=== PATIENT | female | born 1995 | race Caucasian/White ===

== ENCOUNTER 2017-01-25 12:10 | Observation (INO) | payer OTHER ==
[~2017-01-25] VITALS: Ht 160 cm; Wt 64.9 kg
[~2017-01-25 12:10] MED LIST: PREN-385 PO
[2017-01-25 13:15] VITALS: BP 98/55
== END 2017-01-25 13:28 | disposition home or self-care (01) ==
LOC: MLD 12:10
PROVIDERS: ADMIT Obstetrics & Gynecology; ATTEND Obstetrics & Gynecology
DX: O26.893 Other specified pregnancy related conditions, third trimester (principal); R10.13 Epigastric pain; R07.81 Pleurodynia; Z3A.35 35 weeks gestation of pregnancy
CPT/HCPCS: 81000; G0378

== ENCOUNTER 2017-03-02 11:52 | Inpatient (IN) | payer OTHER ==
[~2017-03-02] VITALS: Ht 160 cm; Wt 62.6 kg
[2017-03-02] MEDS ORDERED: LACTATED RINGERS 1,000 ML IV SCH (15:21)
[2017-03-02] MEDS ORDERED: METOCLOPRAMIDE 10 MG/2 ML INJ VIAL IVP ONE (15:25)
[2017-03-02] MEDS ORDERED: CITRIC ACID/SODIUM CITRATE 30 ML UDC PO ONE (15:25)
[2017-03-02 15:54] VITALS: BP 102/63
[2017-03-02 15:58] LABS: BASOPHILS # (AUTO) 0.1 K/uL (0.00-0.22); BASOPHILS % (AUTO) 1.5 % (0.0-2.0); EOSINOPHILS # (AUTO) 0.1 K/uL (0-0.4); HEMATOCRIT 36.8 % (36-48); HEMOGLOBIN 12.1 g/dL (12.0-16.0); LYMPHOCYTES # (AUTO) 1.4 K/uL (2.5-16.5); LYMPHOCYTES % (AUTO) 17.4 % (20.5-51.1); MEAN CORPUSCULAR HEMOGLOBIN 28 pg (27-31); MEAN CORPUSCULAR HGB CONC 33 g/dL (33-37); MEAN CORPUSCULAR VOLUME 86 fL (80-94); MONOCYTES # (AUTO) 0.4 K/uL (0.8-1.0); MONOCYTES % (AUTO) 5.3 % (1.7-9.3); NEUTROPHILS # (AUTO) 5.9 K/uL (1.8-7.7); NEUTROPHILS % (AUTO) 74.8 % (42.2-75.2); PLATELET COUNT (AUTO) 204 K/uL (140-450); RED CELL DISTRIBUTION WIDTH 13.8 % (11.6-13.7); WHITE BLOOD COUNT (AUTO) 7.9 K/uL (4.8-10.8)
[2017-03-02] MEDS ORDERED: OXYTOCIN 10 UNITS/ML VIAL ONE (16:13)
[2017-03-02 16:17] LABS: PROTHROMBIN TIME 9.3 secs (10.8-13.4)
[2017-03-02 16:17] LABS: APPEARANCE,URINE CLEAR (CLEAR); BILIRUBIN,URINE NEGATIVE (NEGATIVE); BLOOD, URINE TRACE-I (NEGATIVE); COLOR,URINE YELLOW (YELLOW); LEUKOCYTE ESTERASE ,URINE NEGATIVE (NEGATIVE); NITRITE, URINE NEGATIVE (NEGATIVE); UGLUCOSE NEGATIVE (NEGATIVE)
[2017-03-02 16:19] LABS: ALBUMIN 2.3 g/dL (3.4-5.0); ANION GAP 9.2 (8-16); CARBON DIOXIDE 26.1 mmol/L (21-32); CREATININE 0.6 mg/dL (0.6-1.3); POTASSIUM 4.3 mmol/L (3.5-5.1); TOTAL BILIRUBIN 0.2 mg/dL (0.0-1.0)
[2017-03-02 16:19] LABS: BARBITURATE, URINE NEG. ng/ml (NEG <=200); BENZODIAZEPINE, URINE NEG. ng/mL (NEG <=200); CANNABINOID, URINE NEG. ng/mL (NEG <=50); COCAINE, URINE NEG. ng/mL (NEG <=300); OPIATE, URINE NEG. ng/mL (NEG <=2000); PHENCYCLIDINE SCREEN,URINE NEG. ng/mL (NEG <=25)
[2017-03-02 16:26] LABS: RBC,URINE 0-5 (RARE) /HPF (0-5); WBC,URINE 0-5 (RARE) /HPF (0-5)
[2017-03-02] MEDS ORDERED: CARBOPROST 250 MCG/ML AMP IM ONE (16:31)
[2017-03-02] MEDS ORDERED: MIDAZOLAM 2 MG/2 ML VIAL ONE (16:31)
[2017-03-02] MEDS ORDERED: THROMBIN KIT 20 MU VIAL TP ONE (16:31)
[2017-03-02] MEDS ORDERED: MORPHINE PRES FREE 10 MG/10 ML AMP IV ONE (16:32)
[2017-03-02] MEDS ORDERED: ceFAZolin 1,000 MG VIAL IVP ONE (17:00)
[2017-03-02] MEDS ORDERED: NALOXONE 0.4 MG/ML VIAL IVP PRN ×3 (17:30)
[2017-03-02] MEDS ORDERED: MEPERIDINE 25 MG/ML SYR IVP PRN (17:30)
[2017-03-02] MEDS ORDERED: OXYTOCIN 20 UNITS in LACTATED RINGERS 1,000 ML IV SCH (17:30)
[2017-03-02] MEDS ORDERED: ONDANSETRON 4 MG/2 ML VIAL IVP PRN ×2 (17:30)
[2017-03-02] MEDS ORDERED: diphenhydrAMINE 50 MG/ML VIAL IVP PRN ×2 (17:30)
[2017-03-02] MEDS ORDERED: NALBUPHINE 10 MG/ML AMP IVP PRN (17:30)
[2017-03-02] MEDS ORDERED: HYDROmorphone 1 MG/ML AMP IVP PRN (17:30)
[2017-03-02] MEDS ORDERED: diphenhydrAMINE 50 MG/ML VIAL ONE (17:56)
[2017-03-02] MEDS ORDERED: OXYTOCIN 20 UNITS/LR PREMIX 1,000 ML IV ONE ×2 (17:56→22:35)
[2017-03-02] MEDS ORDERED: ONDANSETRON 4 MG/2 ML VIAL ONE (18:47)
[2017-03-02] MEDS ORDERED: TRIMETHOBENZAMIDE 200 MG/2 ML SYR IM PRN (21:40)
[2017-03-02] MEDS ORDERED: MEASLES, MUMPS, AND RUBELLA 1 VIAL SQVAC PRN (21:40)
[2017-03-02] MEDS ORDERED: SIMETHICONE 80 MG TAB.CHEW PO PRN (21:40)
[2017-03-02] MEDS ORDERED: TEMAZEPAM 15 MG CAP PO PRN (21:40)
[2017-03-02] MEDS ORDERED: METHYLERGONOVINE 0.2 MG/ML AMP IM PRN (21:40)
[2017-03-02] MEDS: OXYTOCIN 20 UNITS in LACTATED RINGERS 1,000 ML IV SCH (22:36)
[2017-03-03] MEDS: KETOROLAC 30 MG/ML VIAL IM/IVP SCH ×2 (00:21→06:38)
[2017-03-03 05:20] LABS: BASOPHILS # (AUTO) 0.1 K/uL (0.00-0.22); BASOPHILS % (AUTO) 0.5 % (0.0-2.0); EOSINOPHILS # (AUTO) 0.1 K/uL (0-0.4); HEMATOCRIT 31.7 % (36-48); HEMOGLOBIN 10.2 g/dL (12.0-16.0); LYMPHOCYTES # (AUTO) 1.6 K/uL (2.5-16.5); MEAN CORPUSCULAR HEMOGLOBIN 27 pg (27-31); MEAN CORPUSCULAR HGB CONC 32 g/dL (33-37); MEAN CORPUSCULAR VOLUME 85 fL (80-94); MONOCYTES # (AUTO) 0.5 K/uL (0.8-1.0); MONOCYTES % (AUTO) 4.6 % (1.7-9.3); NEUTROPHILS # (AUTO) 9.2 K/uL (1.8-7.7); NEUTROPHILS % (AUTO) 79.9 % (42.2-75.2); PLATELET COUNT (AUTO) 148 K/uL (140-450); RED BLOOD CELL COUNT(AUTO) 3.73 MIL/uL (4.20-5.40); RED CELL DISTRIBUTION WIDTH 14.2 % (11.6-13.7); WHITE BLOOD COUNT (AUTO) 11.6 K/uL (4.8-10.8)
[2017-03-03] MEDS ORDERED: OXYTOCIN 20 UNITS/LR PREMIX 1,000 ML IV ONE ×2 (06:35→14:32)
[2017-03-03] MEDS: OXYTOCIN 20 UNITS in LACTATED RINGERS 1,000 ML IV SCH ×2 (06:39→14:32)
[2017-03-03] MEDS: HYDROcodone/APAP 5/325 MG 1 TAB TAB PO PRN ×2 (13:27→19:13)
[2017-03-03] MEDS: DOCUSATE SOD/SENNA 50/8.6 MG 1 TAB PO SCH (21:41)
[2017-03-04] MEDS: oxyCODONE/APAP 5/325 MG 1 TAB TAB PO PRN ×2 (00:41→08:36)
[2017-03-04] MEDS: IBUPROFEN 800 MG TAB PO PRN ×2 (02:04→09:54)
[2017-03-04] MEDS ORDERED: BISACODYL 5 MG TABEC PO PRN (12:55)
[2017-03-04] MEDS: HYDROcodone/APAP 5/325 MG 1 TAB TAB PO PRN (19:06)
[2017-03-04] MEDS: DOCUSATE SOD/SENNA 50/8.6 MG 1 TAB PO SCH (20:28)
[2017-03-05] MEDS: HYDROcodone/APAP 5/325 MG 1 TAB TAB PO PRN ×3 (07:47→17:34)
[2017-03-05] MEDS: DOCUSATE SOD/SENNA 50/8.6 MG 1 TAB PO SCH (20:21)
[2017-03-06] VITALS (7 sets, daily range): BP systolic 126–160; BP diastolic 55–96
[2017-03-06] MEDS: HYDROcodone/APAP 5/325 MG 1 TAB TAB PO PRN (01:51)
--- NOTE | 2017-03-06 03:00 | NUR ---
RECEIVED PT FROM LOCATED WITHIN [facility] C/O CHEST PAIN. PER REPORT NORCO GIVEN ORDERED. PT AWAKE ALERT AND ORIENTED X4.ABLE TO AMBULATE TOWARD THE BED WITH ASSIST.ON 02NC AT 2LPM.NO SOB NOTED.SB ON MONITOR NOTED.PT DENIES N/V. PER REPORT, PT VOIDED PRIOR TO TRANSFER TO THE UNIT.W/ DRY AND INTACT LONNIE TO SURGICAL INCISION.PT S/P CESARIAN SECTION (03/02/17) WITH ABDOMINAL BINDER ON.NO BLEEDING NOTED ON SITE.PT STILL C/O CHEST PAIN 02/28; DR WOODS AT BEDSIDE.AWARE.NO NEW ORDERS. PTS ALSO AT BEDSIDE.SPOKE W/
--- NOTE | 2017-03-06 03:25 | NUR ---
PERIPHERAL IV INSERTED TO RT WRIST G 20.SALINE LOCK.ALSO BLOOD DRAWN FOR TROPONIN.AWAITING RESULT.
[2017-03-06 03:37] LABS: BASOPHILS # (AUTO) 0.1 K/uL (0.00-0.22); BASOPHILS % (AUTO) 0.5 % (0.0-2.0); EOSINOPHILS # (AUTO) 0.2 K/uL (0-0.4); EOSINOPHILS % (AUTO) 1.6 % (0.0-4.0); HEMATOCRIT 29.9 % (36-48); HEMOGLOBIN 9.8 g/dL (12.0-16.0); LYMPHOCYTES # (AUTO) 1.1 K/uL (2.5-16.5); LYMPHOCYTES % (AUTO) 10.6 % (20.5-51.1); MEAN CORPUSCULAR HEMOGLOBIN 28 pg (27-31); MEAN CORPUSCULAR HGB CONC 33 g/dL (33-37); MEAN CORPUSCULAR VOLUME 85 fL (80-94); MONOCYTES # (AUTO) 0.6 K/uL (0.8-1.0); MONOCYTES % (AUTO) 5.3 % (1.7-9.3); NEUTROPHILS # (AUTO) 8.8 K/uL (1.8-7.7); PLATELET COUNT (AUTO) 245 K/uL (140-450); RED BLOOD CELL COUNT(AUTO) 3.52 MIL/uL (4.20-5.40); RED CELL DISTRIBUTION WIDTH 14.3 % (11.6-13.7); WHITE BLOOD COUNT (AUTO) 10.8 K/uL (4.8-10.8)
[2017-03-06 03:52] LABS: CARBON DIOXIDE 25.7 mmol/L (21-32); POTASSIUM 3.7 mmol/L (3.5-5.1)
--- NOTE | 2017-03-06 04:47 | NUR ---
PT ASLEEP;STILL SINUS BRADYCARDIA NOTED ON MONITOR. 40'S.PT ASLEEP;NO SIGNS OF PAIN NOTED.WILL CONTNIUE TO CLOSELY MONITOR PT.NO SOB NOTED RESP 19
--- NOTE | 2017-03-06 06:13 | NUR ---
PT ASLEEP; EASILY AROUSABLE.PHOTO OF SURGICAL INCISION TO ABDOMEN TAKEN.PLACED IN CHART.SURGICAL SITE DRY WITH INTACT LONNIE NOTED.SCANTY VAGINAL BLEEDING ALSO NOTED ON PAD.NO C/O PAIN MADE AT THIS TIME. PHONE CALL MADE TO [facility] RN. PER MAGALY, PT GOES TO TOILET TO VOID.BM ALSO NOTED ON THEIR SHIFT.PT VERBALIZED SHE DOES NOT HAVE THE URGE TO URINATE.BLADDER NOT DISTENDED AT THIS TIME.
--- NOTE | 2017-03-06 07:24 | NUR ---
RECEIVED REPORT FROM [facility] RN. PT IS SLEEPING BUT AROUSABLE TO NAME. AAO X 4 WHEN AWAKE. COMPLAINED OF CHEST PAIN 6/10. ON O2 AT 2 LPM/ NC. NO SOB NOTED. LUNGS CLEAR TO AUSCULTATION. SB ON MONITOR. NO BLEEDING NOTED AT SURGICAL INCISION, LONNIE DRY AND INTACT. BED IN LOWEST POSITION AND CALL LIGHT WITHIN REACH. WILL CONTINUE TO MONITOR.
--- NOTE | 2017-03-06 07:35 | NUR ---
DR. ANDRE CAME TO SEE AND EXAMINE PT. WILL FOLLOW UP WITH NEW ORDERS.
--- NOTE | 2017-03-06 09:10 | NUR ---
PT REQUESTED TO GO AND SEE THE BABY IN [facility]. DR. ANDRE MADE AWARE OF PT'S REQUEST. PER DR. ANDRE, WAIT FOR THE WIRELESS RETAIL MANAGER'S EVALUATION. PAGED DR. BENÍTEZ. AWAITING CALL BACK.
--- NOTE | 2017-03-06 09:35 | NUR ---
DR. BENÍTEZ CALLED BACK. MADE AWARE OF PT'S REQUEST TO TRANSFER TO [facility], COMPLAINT OF CHEST PAIN AND BRADYCARDIA ON MONITOR. DR. BENÍTEZ WILL COME AND SEE PT IN ABOUT 2 HOURS.
--- NOTE | 2017-03-06 10:57 | NUR ---
PT SLEEPING COMFORTABLY AT THIS TIME. AT BEDSIDE.
--- NOTE | 2017-03-06 11:58 | NUR ---
PT STILL SLEEPING COMFORTABLY AT THIS TIME. EASILY AROUSABLE. LUNCH OFFERED. PT REFUSED LUNCH.
--- NOTE | 2017-03-06 12:54 | NUR ---
DR. BENÍTEZ CAME TO SEE AND EXAMINE PT. WILL FOLLOW UP WITH NEW ORDERS.
--- NOTE | 2017-03-06 14:00 | NUR ---
PT HAD AN EPISODE OF VOMITING SMALL AMOUNT OF YELLOWISH VOMITUS. C/O MID UPPER ABDOMINAL PAIN OF 5/10. REFUSED MEDICATIONS FOR PAIN OR N/V. AT BEDSIDE. NO SOB OR OTHER SIGNS OF ACUTE DISTRESS NOTED AT THIS TIME. WILL CONTINUE TO MONITOR.
--- NOTE | 2017-03-06 14:54 | NUR ---
CM NOTE INITIAL REVIEW FAXED TO [facility] [phone] ARUN PURCELLA # [phone]
[2017-03-06] MEDS ORDERED: PROBIOTIC SCREEN 1 EA MISC MC PRN (15:05)
--- NOTE | 2017-03-06 17:00 | NUR ---
PERIPHERAL IV 20 G STARTED TO LEFT ANTECUBITAL. GOOD BLOOD RETURN NOTED. FLUSHED WITH NS. PT TOLERATED WELL. NO COMPLAINT OF PAIN OR DISCOMFORT AT THE SITE.
--- NOTE | 2017-03-06 17:20 | NUR ---
PT HAD ANOTHER EPISODE OF VOMITING. PT REQUESTED ANTI-NAUSEA MEDICATION. ADMINISTERED ORDERED TIGAN. WILL REASSESS AND CONTINUE TO MONITOR.
--- NOTE | 2017-03-06 17:30 | NUR ---
PT HAD CT CHEST ANGIO W/ CONTRAST DONE. RESTING AT THIS TIME. MADE COMFORTABLE IN BED. WILL CONTINUE TO MONITOR.
--- NOTE | 2017-03-06 19:20 | NUR ---
SENT A PAGED TO DR. SCHWAB, AWAITING FOR CALL BACK.
--- NOTE | 2017-03-06 19:22 | NUR ---
DR. SCHWAB CALLED BACK AND MADE AWARE OF THE RESULT OF CT CHEST ANGIO. DR. SCHWAB STATED HE WOULD CALL DR. BENÍTEZ TO CALL HERE SINCE HE SAW THE PT TODAY.
--- NOTE | 2017-03-06 19:30 | NUR ---
DR. BENÍTEZ CALLED BACK AND MADE AWARE OF CT CHEST ANGIO RESULT AND HE SAID OK FOR PT TO TRANSFER TO [facility]. MADE HIM AWARE THAT DR. ANDRE FROM [facility] HAS AN ORDER TO DC HOME IF RIG MECHANIC CLEARS.
--- NOTE | 2017-03-06 19:40 | NUR ---
REPORT GIVEN TO NIGHT RN FOR CONTINUITY OF CARE. PATIENT IN STABLE CONDITION.
--- NOTE | 2017-03-06 19:50 | NUR ---
DC INSTRUCTIONS GIVEN TO PT. PT TO F/U WITH DR. Leelee ANDRE WITHIN 7 DAYS FOR SUTURE REMOVAL. NO TAMPTONS, NO SHOWER, CONTINUE ABDOMINAL BINDER. NO HEAVY LIFTING. PT VERBALIZED UNDERSTANDING. PT REFUSED TDAP AND MMR VACCINATIONS. IV FROM RIGHT WRIST #20 AND LEFT AC #20 WERE REMOVED AND CATHETERS WERE INTACT. PT TOLERATED WELL. ASSISTED THE PT TO CHANGE FROM HOSPITAL GOWN TO HER CLOTHES. HOSPITAL NAMES BAND REMOVED. PT ASKED TO CALL HER BOYFRIEND, ROHAN TO PICK HER UP. PHONED HER BOYFRIEND FOR A INDUCTION BRAZER AND HE SAID HE IS ON THE WAY. PT HAS NO ACUTE DISTRESS AND DENIES ANY PAIN AT THIS TIME.
--- NOTE | 2017-03-06 20:30 | NUR ---
PT DISCHARGED HOME VIA PERSONAL CAR WITH HER BOYFRIEND, ROHAN WITH STABLE CONDITION. BELONGINGS AND ALL DC INSTRUCTIONS SENT WITH THE PT.
== END 2017-03-06 20:30 | disposition home or self-care (01) | DRG 540 ==
LOC: UNDOADMIN 11:52 → MLD 11:52 → MFCC 18:52 → MIC 03-06 03:00
PROVIDERS: ADMIT Obstetrics & Gynecology; ATTEND Obstetrics & Gynecology
PROC: 0UB70ZZ Excision of Bilateral Fallopian Tubes, Open Approach (ICD-10-PCS; 2017-03-02)
PROC: 10D00Z1 Extraction of Products of Conception, Low, Open Approach (ICD-10-PCS; principal; 2017-03-02 16:30)
DX: O34.211 Maternal care for low transverse scar from previous cesarean delivery (principal); O44.03 Complete placenta previa NOS or without hemorrhage, third trimester; R00.1 Bradycardia, unspecified; O99.324 Drug use complicating childbirth; O90.89 Other complications of the puerperium, not elsewhere classified; R07.81 Pleurodynia; F15.10 Other stimulant abuse, uncomplicated; O99.330 Smoking (tobacco) complicating pregnancy, unspecified trimester; F17.200 Nicotine dependence, unspecified, uncomplicated; Z30.2 Encounter for sterilization; Z3A.39 39 weeks gestation of pregnancy; Z37.0 Single live birth
CPT/HCPCS: 36415; 51702; 71275; 80048; 80053; 80305; 81001; 84484; 85025; 85610; 85730; 86592; 86886; 86900; 86901; 86920; 87081; 88302; 93005; J0690; J1200; J1885; J2250; J2270; J2405; J2590; J3250; J3490; J7060; J7120; Q9967